=== PATIENT | female | born 1950 | race Caucasian/White ===

== ENCOUNTER → 2018-12-28 | Day surgery (SDC) | payer MEDICARE, BC ==
[~2018-12-28] MED LIST: BUPIVACAINE HCL 0.25% MPF 30 ML SOL INFIL ONE; DEXAMETHASONE SOD PHOS PF 10 MG/ML SOL IJ ONE
[2018-12-28 11:48] VITALS: TEMP 97.6
[2018-12-28 12:23] VITALS: BP 136/92; PULSE 85; RESP 16; O2SAT 94
== END | disposition home or self-care (01) | DRG 639 ==
LOC: SURG 11:16
PROVIDERS: ATTEND Nurse Anesthetist, Certified Registered
DX: E11.9 Type 2 diabetes mellitus without complications (principal); M51.17 Intervertebral disc disorders with radiculopathy, lumbosacral region
CPT/HCPCS: J1100

== ENCOUNTER 2019-02-15 06:00 | Day surgery (SDC) | payer MEDICARE, BC ==
[~2019-02-15 06:00] MED LIST changes: +ACETAZOLAMIDE 250 MG PO ONE; -BUPIVACAINE HCL 0.25% MPF 30 ML SOL INFIL ONE; -DEXAMETHASONE SOD PHOS PF 10 MG/ML SOL IJ ONE
[2019-02-15 06:17] VITALS: RESP 16
[2019-02-15] MEDS: TETRACAINE HCL 0.5 % 1 DROP SOL ONE ×3 (06:17→07:33)
[2019-02-15] MEDS: PHENYLEPHRINE HCL 10% OPHTHAL SOL ONE ×2 (06:17→06:31)
[2019-02-15] MEDS: CYCLOPENTOLATE 1% SOL ONE ×2 (06:18→06:32)
[2019-02-15] MEDS: KETOROLAC 0.5% OPTH 60 DROP SOL ONE ×2 (06:19→06:33)
[2019-02-15] MEDS ORDERED: POVIDONE IODINE 5% SOL ONE (07:04)
[2019-02-15] MEDS ORDERED: BSS 500 ML 500 ML IR ONE (07:04)
[2019-02-15] MEDS ORDERED: MIDAZOLAM 2 MG/2 ML SOL ONE (07:18)
[2019-02-15] MEDS ORDERED: FENTANYL 100MCG/2ML SOL ONE (07:18)
[2019-02-15] MEDS ORDERED: ONDANSETRON HCL 4 MG/2 ML SOL ONE (07:20)
[2019-02-15] MEDS: LIDOCAINE HCL 1% MPF 30 SOL ONE ×2 (07:43→07:45)
[2019-02-15] MEDS: MOXIFLOXACIN HCL OPHTH 5 MG/ML SOL ONE ×2 (07:56→07:57)
[2019-02-15] MEDS: DEXAMETHASONE 20 MG/5 ML (4 MG/ML SOL) ONE ×2 (07:56→07:57)
[2019-02-15 08:06] VITALS: BP 118/72; PULSE 82; TEMP 98; O2SAT 94
== END 2019-02-15 08:33 | disposition home or self-care (01) | DRG 125 ==
LOC: SURG 06:00
PROVIDERS: ATTEND Ophthalmology
DX: H25.89 Other age-related cataract (principal); E11.9 Type 2 diabetes mellitus without complications
CPT/HCPCS: 0191T; 66984; J1100; J2250; J2405; J3010; A9270-GY; C1783; J2001

== ENCOUNTER 2019-03-22 08:03 | Day surgery (SDC) | payer MEDICARE, BC ==
[2019-03-22 08:15] VITALS: O2SAT 96
[2019-03-22] MEDS: CYCLOPENTOLATE 1% SOL ONE ×2 (08:17→08:30)
[2019-03-22] MEDS: PHENYLEPHRINE HCL 10% OPHTHAL SOL ONE ×2 (08:17→08:29)
[2019-03-22] MEDS: KETOROLAC 0.5% OPTH 60 DROP SOL ONE ×2 (08:17→08:30)
[2019-03-22] MEDS: TETRACAINE HCL 0.5 % 1 DROP SOL ONE ×4 (08:17→09:26)
[2019-03-22] MEDS ORDERED: MIDAZOLAM 2 MG/2 ML SOL ONE (09:01)
[2019-03-22] MEDS ORDERED: FENTANYL 100MCG/2ML SOL ONE (09:01)
[2019-03-22] MEDS ORDERED: ONDANSETRON HCL 4 MG/2 ML SOL ONE (09:03)
[2019-03-22] MEDS ORDERED: BSS 500 ML 500 ML IR ONE (09:21)
[2019-03-22] MEDS ORDERED: DEXAMETHASONE 20 MG/5 ML (4 MG/ML SOL) ONE (09:21)
[2019-03-22] MEDS: POVIDONE IODINE 5% SOL ONE ×2 (09:26→09:30)
[2019-03-22] MEDS: MOXIFLOXACIN HCL OPHTH 5 MG/ML SOL ONE ×2 (09:35→09:42)
[2019-03-22] MEDS ORDERED: LIDOCAINE HCL 1% MPF 30 SOL ONE (09:46)
[2019-03-22 09:52] VITALS: BP 114/75; PULSE 90; RESP 18; TEMP 96.9
== END 2019-03-22 10:10 | disposition home or self-care (01) | DRG 125 ==
LOC: SURG 08:03
PROVIDERS: ATTEND Ophthalmology
DX: H25.89 Other age-related cataract (principal); H40.10X2 Unspecified open-angle glaucoma, moderate stage; E11.9 Type 2 diabetes mellitus without complications
CPT/HCPCS: 0191T; 66984; 82962; J1100; J2250; J2405; J3010; A9270-GY; C1783; J2001

== ENCOUNTER 2019-06-27 12:44 | Outpatient (CLI) | payer MEDICARE, BC | END 2019-06-27 12:45 | disposition home or self-care (01) | DRG 556 | LOC: CONVCARE 12:44 | PROVIDERS: ATTEND Orthopaedic Surgery | DX: M79.645 Pain in left finger(s) (principal); M25.842 Other specified joint disorders, left hand | CPT/HCPCS: 73140 ==